=== PATIENT | female | born 1980 | race Two or more races ===

== ENCOUNTER 2020-02-07 13:21 | Emergency (ER) | payer OTHER ==
[~2020-02-07] VITALS: Ht 154.9 cm; Wt 62.1 kg
== END 2020-02-07 17:19 | disposition home or self-care (01) ==
LOC: ER 13:21
DX: O36.8120 Decreased fetal movements, second trimester, not applicable or unspecified (principal); O26.892 Other specified pregnancy related conditions, second trimester; R10.2 Pelvic and perineal pain; O26.852 Spotting complicating pregnancy, second trimester; O36.80X0 Pregnancy with inconclusive fetal viability, not applicable or unspecified; Z3A.16 16 weeks gestation of pregnancy; Z03.818 Encounter for observation for suspected exposure to other biological agents ruled out

== ENCOUNTER → 2020-03-06 | Outpatient (CLI) | payer OTHER | END | disposition home or self-care (01) | LOC: PRENATAL 13:24 | PROVIDERS: ATTEND Obstetrics & Gynecology Maternal & Fetal Medicine | DX: O35.0XX1 Maternal care for (suspected) central nervous system malformation in fetus, fetus 1 (principal); O35.3XX1 Maternal care for (suspected) damage to fetus from viral disease in mother, fetus 1; O34.12 Maternal care for benign tumor of corpus uteri, second trimester; O98.512 Other viral diseases complicating pregnancy, second trimester; Z36.89 Encounter for other specified antenatal screening; Z3A.20 20 weeks gestation of pregnancy ==

== ENCOUNTER 2020-06-14 16:23 | Inpatient (IN) | payer OTHER ==
[~2020-06-14] VITALS: Ht 154.9 cm; Wt 73.9 kg
[2020-06-15] MEDS ORDERED: PRENATAL GUMMI1 EACH PO (00:27)
== END 2020-06-21 10:36 | disposition home or self-care (01) | DRG 833 ==
LOC: LDR 16:23 → OB/GYN 16:23 → LDR 22:44 → OB/GYN 06-16 07:43
PROVIDERS: ADMIT Obstetrics & Gynecology; ATTEND Obstetrics & Gynecology
PROC: 4A1HXFZ Monitoring of Products of Conception, Cardiac Rhythm, External Approach (ICD-10-PCS; principal; 2020-06-14)
PROC: BY4FZZZ Ultrasonography of Third Trimester, Single Fetus (ICD-10-PCS; 2020-06-14)
PROC: BU46ZZZ Ultrasonography of Uterus (ICD-10-PCS; 2020-06-14)
DX: O47.03 False labor before 37 completed weeks of gestation, third trimester (principal); Z3A.34 34 weeks gestation of pregnancy

== ENCOUNTER 2020-07-06 14:31 | Inpatient (IN) | payer OTHER ==
[~2020-07-06] VITALS: Ht 154.9 cm; Wt 73.9 kg
[~2020-07-06 14:31] MED LIST: PRENATAL GUMMI1 EACH PO
[2020-07-06] MEDS ORDERED: GUMMI BEAR MUL1 EACH PO (15:53)
[2020-07-06] MEDS ORDERED: GAVISCON LIQUI355 ML PO (15:56)
== END 2020-07-09 12:50 | disposition home or self-care (01) | DRG 785 ==
LOC: LDR 14:31 → SURG-SUITE 14:31
PROVIDERS: ADMIT Obstetrics & Gynecology; ATTEND Obstetrics & Gynecology
PROC: 0UB70ZZ Excision of Bilateral Fallopian Tubes, Open Approach (ICD-10-PCS; 2020-07-06)
PROC: 4A1HXFZ Monitoring of Products of Conception, Cardiac Rhythm, External Approach (ICD-10-PCS; 2020-07-06)
PROC: 10D00Z1 Extraction of Products of Conception, Low, Open Approach (ICD-10-PCS; principal; 2020-07-06 16:00)
DX: O65.5 Obstructed labor due to abnormality of maternal pelvic organs (principal); O34.13 Maternal care for benign tumor of corpus uteri, third trimester; D25.9 Leiomyoma of uterus, unspecified; Z30.2 Encounter for sterilization; O32.9XX0 Maternal care for malpresentation of fetus, unspecified, not applicable or unspecified; Z3A.38 38 weeks gestation of pregnancy; Z37.0 Single live birth

== ENCOUNTER 2021-03-07 08:00 | Inpatient (IN) | payer OTHER ==
[~2021-03-07] VITALS: Ht 162.6 cm; Wt 68.0 kg
[~2021-03-07 08:00] MED LIST changes: +GAVISCON LIQUI355 ML PO; +GUMMI BEAR MUL1 EACH PO
[2021-03-15] MEDS ORDERED: IBUPROFEN800 MG PO (06:11)
[2021-03-15] MEDS ORDERED: NEURONTIN600 MG PO (06:11)
[2021-03-15] MEDS ORDERED: POLY119PG PO (06:11)
[2021-03-15] MEDS ORDERED: SIMETHICONE125 M1 PO (06:11)
== END 2021-03-15 08:36 | disposition home or self-care (01) | DRG 743 ==
LOC: EDSTATUS 08:00 → ADM 08:00 → O/R 03-12 06:00 → SURG-SUITE 03-12 06:00 → OB/GYN 03-12 08:00 → SURG-SUITE 03-12 12:26
PROVIDERS: ADMIT Obstetrics & Gynecology; ATTEND Obstetrics & Gynecology
PROC: 0UT70ZZ Resection of Bilateral Fallopian Tubes, Open Approach (ICD-10-PCS; 2021-03-12)
PROC: 0UT90ZZ Resection of Uterus, Open Approach (ICD-10-PCS; principal; 2021-03-12 08:30)
DX: D25.1 Intramural leiomyoma of uterus (principal); N93.9 Abnormal uterine and vaginal bleeding, unspecified